=== PATIENT | male | born 1995 | race Two or more races ===

== ENCOUNTER 2024-06-06 13:48 | Emergency (ER) | payer OTHER ==
[~2024-06-06] VITALS: Ht 167.6 cm; Wt 75.1 kg
[2024-06-06 18:34] VITALS: RESP 16
[2024-06-06] MEDS: HYDROcodone-ACET 5/325MG TAB PO ONE (19:09)
[2024-06-06 21:44] VITALS: BP 128/84; PULSE 68; TEMP 97.9; O2SAT 98
[2024-06-06] MEDS ORDERED: AUG875T PO (22:44)
== END 2024-06-06 23:13 | disposition home or self-care (01) ==
LOC: ER 13:48
DX: S61.211A Laceration without foreign body of left index finger without damage to nail, initial encounter (principal); Z79.2 Long term (current) use of antibiotics; W45.8XXA Other foreign body or object entering through skin, initial encounter; Y93.89 Activity, other specified; Y92.89 Other specified places as the place of occurrence of the external cause; Y99.8 Other external cause status
CPT/HCPCS: 12002; 73140